=== PATIENT | female | born 1995 | race African-American/Black ===

== ENCOUNTER 2017-03-03 13:47 | Emergency (ER) | payer MEDICAID, OTHER ==
[~2017-03-03] VITALS: Ht 162.6 cm; Wt 86.2 kg
[~2017-03-03 13:47] MED LIST: CEPH500 PO; METR-1 PO
[2017-03-03 13:48] VITALS: BP 116/69; PULSE 90; RESP 20; TEMP 98.7; O2SAT 98
[2017-03-03 14:35] LABS: BACTERIA, URINE RARE /hpf; BLOOD, URINE NEG (NEG); COMMENT (UR) CULT NOT INDICATED; CULTURE IF INDICATED CULT NOT INDICATED; GLUCOSE,URINE NEG (NEG); KETONE, URINE NEG (NEG); MUCUS URINE FEW /lpf (OCC); NITRITE,URINE NEG (NEG); SQUAMOUS EPITHELIAL CELL URINE <1 /hpf (0-5); URINE COLOR YELLOW (YELLW/STRAW)
--- NOTE | 2017-03-03 15:15 | PD ---
HPI . here for dark urine Chief Complaint: Complaint Time Seen by Provider: 15:15 Travel History International Travel<30 days: No Contact w/Intl Traveler<30days: No Traveled to known affect area: No History of Present Illness HPI 22-year-old female here with complaints of dark urine. Patient denies any dysuria, vaginal discharge, vaginal bleeding or other symptoms. She tells me she was concerned because her urine was dark in color. She would also like to know she's . PFSH Past Medical History Diminished Hearing: No Immunizations Current: Yes ?: Unknown LMP: 02/02/17 : 0 Para: 0 Past Surgical History Abdominal Surgery: Yes (UMBILICAL HERNIA) Social History Alcohol Use: No Tobacco Use: No Substance Use: No Allergies-Medications (Allergen,Severity, Reaction): Coded Allergies: No Known Allergies (Verified , 03/03/17) Reported Meds & Prescriptions Reported Meds & Active Scripts Active No Active Prescriptions or Reported Medications Review of Systems General / Constitutional: No: Fever Eyes: No: Visual changes HENT: No: Headaches Cardiovascular: No: Chest Pain or Discomfort Respiratory: No: Shortness of Breath Gastrointestinal: No: Abdominal Pain Genitourinary: No: Dysuria Musculoskeletal: No: Pain Skin: No Rash Neurologic: No: Weakness Psychiatric: No: Depression Endocrine: No: Polydipsia Hematologic/Lymphatic: No: Easy Bruising Physical Exam Narrative GENERAL: AAO x 3, no acute distress, Well-nourished, well-developed patient. SKIN: Warm and dry. No visible rashes or bruising. HEAD: Normocephalic and atraumatic. EYES: No scleral icterus. No injection or drainage. ENT: No nasal drainage noted. Mucous membranes pink. Airway patent. NECK: Supple, trachea midline. No JVD. CARDIOVASCULAR: Regular rate and rhythm without murmurs, gallops, or rubs. RESPIRATORY: Breath sounds equal bilaterally. No accessory muscle use. No rhonchi or rales. GASTROINTESTINAL: Abdomen soft, non-tender, nondistended. No rebound or guarding. EXTREMITIES: No cyanosis or edema. BACK: No obvious deformity. No CVA tenderness. NEURO: CN II-12 intact, PSYCH: AAO x 3, normal affect. Data Data Last Documented VS Vital Signs Date Time Temp Pulse Resp B/P (MAP) Pulse Ox O2 Delivery O2 Flow Rate FiO2 03/03/17 15:33 03/03/17 13:48 98.7 90 20 98 Room Air Orders Orders Urinalysis - C+S If Indicated (03/03/17 14:05) Ed Urine Pregnancytest Poc (03/03/17 14:05) Labs Laboratory Tests Test 03/03/17 14:16 Urine Color YELLOW Urine Turbidity CLEAR Urine pH 7.0 Urine Specific [place] 1.024 Urine Protein TRACE mg/dL Urine Glucose (UA) NEG mg/dL Urine Ketones NEG mg/dL Urine Occult Blood NEG Urine Nitrite NEG Urine Bilirubin NEG Urine Urobilinogen 2.0 MG/DL Urine Leukocyte Esterase TRACE Urine RBC 1 /hpf Urine WBC 6 /hpf Urine Squamous Epithelial Cells <1 /hpf Urine Bacteria RARE /hpf Urine Mucus FEW /lpf Microscopic Urinalysis Comment CULT NOT INDICATED MDM Medical Decision Making Medical Screen Exam Complete: Yes Emergency Medical Condition: Yes Medical Record Reviewed: Yes Differential Diagnosis Urine abnormality, dysuria, UTI, dehydration Narrative Course 22-year-old female here with complaints of dark-colored urine. In triage urinalysis was ordered and there is no indication of infection. I discussed these results with the patient. I advised her if she had any vaginal symptoms that we could proceed with pelvic exam. She declined. test negative. Advised patient follow up with her primary care provider. Patient verbalized understanding of instructions, questions were answered, and thanked me for their care. I advised them if their condition worsens, please return to the nearest emergency room for further care. Diagnosis Primary Impression: Urine abnormality Patient Instructions: General Instructions Additional Instructions: Follow up with your school clinic. Med/Other Pt SpecificInfo: No Change to Meds Scripts No Active Prescriptions or Reported Meds Disposition: 01 DISCHARGE HOME Condition: Stable Coni Cruz Mar 03, 2017 15:15
== END 2017-03-03 15:33 | disposition home or self-care (01) ==
LOC: NEPK 13:47
DX: R82.99 Other abnormal findings in urine (principal)
CPT/HCPCS: 81001; 84703; 99283

== ENCOUNTER 2017-07-03 14:52 | Emergency (ER) | payer SELFPAY ==
[~2017-07-03] VITALS: Ht 162.6 cm; Wt 90.5 kg
[2017-07-03 14:53] VITALS: BP 116/56; PULSE 71; RESP 16; TEMP 98.9; O2SAT 99
--- NOTE | 2017-07-03 15:08 | PD ---
HPI Chief Complaint: ENT Complaint Time Seen by Provider: 14:57 Travel History International Travel<30 days: No Contact w/Intl Traveler<30days: No Traveled to known affect area: No History of Present Illness HPI 22-year-old female presents to the emergency Department with complaint of her right ear being clocked with wax and having decreased hearing times one week. Denies recent illness to include nasal congestion, cough, sore throat, ear pain. Has used [id number] earwax drops with no relief of symptoms. No known aggravating or relieving factors. Symptoms are mild in severity. Has no other medical complaints. No known allergies. No primary care provider. Denies significant past medical history. No other modifying factors or associated signs and symptoms. History Past Medical Histgory LMP: 06/22/2017 Social History Alcohol Use: Yes (OCC) Tobacco Use: No Allergies-Medications (Allergen,Severity, Reaction): Coded Allergies: No Known Allergies (Verified , 03/03/17) Reported Meds & Prescriptions Reported Meds & Active Scripts Active No Active Prescriptions or Reported Medications Review of Systems Except as stated in HPI: all other systems reviewed are Neg Physical Exam Narrative GENERAL: Well-nourished, well-developed black female patient, in no acute distress SKIN: Warm and dry. HEAD: Atraumatic. Normocephalic. EYES: Pupils equal and round. No scleral icterus. No injection or drainage. ENT: Mucosa pink and moist. No erythema or exudates. No uvular edema. No uvular , palatal, or tonsillar deviation. Airway patent. Nasal turbinates appear normal without nasal blood, purulent drainage or septal hematoma. EARS: Bilateral pinnae and external canals appear within normal limits. Unable to visualize right tympanic membrane secondary to cerumen impaction. Left tympanic membranes without erythema, dullness or perforation. NECK: Trachea midline. CARDIOVASCULAR: Regular rate. RESPIRATORY: No accessory muscle use. GASTROINTESTINAL: Obese. MUSCULOSKELETAL: No obvious deformities. No clubbing. No cyanosis. No edema. NEUROLOGICAL: Awake and alert. Oriented 3. No obvious cranial nerve deficits. Motor grossly within normal limits. Normal speech. PSYCHIATRIC: Appropriate mood and affect; insight and judgment normal. Data Data Last Documented VS Vital Signs Date Time Temp Pulse Resp B/P (MAP) Pulse Ox O2 Delivery O2 Flow Rate FiO2 07/03/17 14:53 98.9 71 16 116/56 (76) 99 Room Air [facility] Medical Screen Exam Complete: Yes Emergency Medical Condition: No Differential Diagnosis Cerumen impaction Narrative Course Vital signs are stable and the patient is stable for outpatient follow-up and treatment. The patient has no urgent or emergent medical complaints. There is no emergent or urgent medical need at this time. I instructed the patient to follow up with their primary care provider. A medical screening exam was performed: At the time of evaluation the presenting medical condition was determined not to be of an emergent nature. The patient was given the option of receiving additional care, but declined. Patient was given options for additional community resources from which to obtain care. The Patient Has Been advised to seek medical attention for their presenting complaint. The patient has been advised to return to the ER at any time if an emergent condition develops. Primary Impression: Encounter for medical screening examination Scripts No Active Prescriptions or Reported Meds Condition: Stable Gogo Small Jul 03, 2017 15:08
== END 2017-07-03 15:10 | disposition left against medical advice (07) ==
LOC: NEPK 14:52
DX: H61.21 Impacted cerumen, right ear (principal); Z53.21 Procedure and treatment not carried out due to patient leaving prior to being seen by health care provider
CPT/HCPCS: 99281

== ENCOUNTER 2017-08-30 08:47 | Emergency (ER) | payer SELFPAY ==
[~2017-08-30] VITALS: Ht 162.6 cm; Wt 90.0 kg
[2017-08-30 08:49] VITALS: BP 116/64; PULSE 82; RESP 18; TEMP 98.8; O2SAT 100
--- NOTE | 2017-08-30 09:39 | PD ---
HPI Chief Complaint: Bite or Sting Time Seen by Provider: 09:32 Travel History International Travel<30 days: No Contact w/Intl Traveler<30days: No Traveled to known affect area: No History of Present Illness HPI 22-year-old -[place] female presents emergency department with probable insect bite to the left dorsal hand, last evening. Patient states the area is swollen, somewhat painful, but more itchy than painful. She noted it was worse when she went to work this morning. She is unsure what she may been bitten by. She had a similar lesion last week to the right upper posterior arm. She is not taking anything for it. She thought she should have it checked as it was swelling into her fingers. She has no fever, chills, or other constitutional symptoms. She has no known drug allergies. PFSH Past Medical History Diminished Hearing: No Immunizations Current: Yes ?: Not LMP: AUGUST 20 2017 : 0 Para: 0 Past Surgical History Abdominal Surgery: Yes (UMBILICAL HERNIA) Social History Alcohol Use: Yes (OCC) Tobacco Use: No Substance Use: No Allergies-Medications (Allergen,Severity, Reaction): Coded Allergies: No Known Allergies (Verified , 03/03/17) Reported Meds & Prescriptions Reported Meds & Active Scripts Active No Active Prescriptions or Reported Medications Review of Systems Except as stated in HPI: all other systems reviewed are Neg General / Constitutional: No: Fever Eyes: No: Visual changes HENT: No: Headaches Cardiovascular: No: Chest Pain or Discomfort Respiratory: No: Shortness of Breath Gastrointestinal: No: Abdominal Pain Genitourinary: No: Dysuria Musculoskeletal: No: Pain Skin: Positive Itching, Positive Lesions (See history of present illness), No Rash Neurologic: No: Weakness Psychiatric: No: Depression Endocrine: No: Polydipsia Hematologic/Lymphatic: No: Easy Bruising Physical Exam Narrative GENERAL: Patient appears in no obvious distress per SKIN: Warm and dry. Normal color. Normal turgor. Patient has area over the dorsal left distal hand between the middle and ring finger which is slightly erythematous, and swollen, consistent with localized allergic reaction from insect bite. There is no significant increased warmth or induration. HEAD: Atraumatic. Normocephalic. EYES: Pupils equal and round. No scleral icterus. No injection or drainage. ENT: No nasal bleeding or discharge. Mucous membranes pink and moist. Pharynx is clear. Airways patent. NECK: Trachea midline. Supple and nontender. CARDIOVASCULAR: Regular rate and rhythm. RESPIRATORY: No accessory muscle use. Clear to auscultation. Breath sounds equal bilaterally. MUSCULOSKELETAL: Extremities without clubbing, cyanosis, or edema. No obvious deformities. NEUROLOGICAL: Awake and alert. No obvious cranial nerve deficits. Motor grossly within normal limits. Five out of 5 muscle strength in the arms and legs. Normal speech. PSYCHIATRIC: Appropriate mood and affect; insight and judgment normal. Data Data Last Documented VS Vital Signs Date Time Temp Pulse Resp B/P (MAP) Pulse Ox O2 Delivery O2 Flow Rate FiO2 08/30/17 08:49 98.8 82 18 116/64 (81) 100 MDM Medical Decision Making Medical Screen Exam Complete: Yes Emergency Medical Condition: Yes Differential Diagnosis Insect bite. Allergic reaction. Possible early cellulitis. Narrative Course Patient is felt to be medically stable at time of exam. I do not suspect a bacterial infection at this time. Patient should take Benadryl 25 mg every 6 hours as needed #30. Patient can take ibuprofen 600 mg 3 times daily #30. Patient is given a work note for today. Patient is to follow-up if symptoms worsen. Diagnosis Primary Impression: Insect bite Qualified Codes: W57.XXXA - Bitten or stung by nonvenomous insect and other nonvenomous arthropods, initial encounter Patient Instructions: General Instructions, Insect Bite or Sting (ED) Departure Forms: Work Release Enter return to work date: Aug 31, 2017 Additional Instructions: I do not suspect a bacterial infection at this time. Patient should take Benadryl 25 mg every 6 hours as needed #30. Patient can take ibuprofen 600 mg 3 times daily #30. Patient is given a work note for today. Patient is to follow-up if symptoms worsen. Scripts No Active Prescriptions or Reported Meds Disposition: DISCHARGE HOME Condition: Stable Serafin Alvarez Aug 30, 2017 09:39
[2017-08-30] MEDS ORDERED: DIPH25CA PO (09:41)
[2017-08-30] MEDS ORDERED: IBUP-232 PO (09:41)
== END 2017-08-30 09:59 | disposition home or self-care (01) ==
LOC: NEPD 08:47
DX: S60.562A Insect bite (nonvenomous) of left hand, initial encounter (principal); W57.XXXA Bitten or stung by nonvenomous insect and other nonvenomous arthropods, initial encounter
CPT/HCPCS: 99283